=== PATIENT | male | born 1965 | race Caucasian/White ===

== ENCOUNTER 2017-01-18 13:42 | Observation (INO) | payer OTHER ==
[2017-01-18] MEDS ORDERED: ASPIRIN 81 MG TABLET, CHEWABLE PO ONE (14:13)
--- NOTE | 2017-01-18 14:17 | ER Document Report ---
ED Medical Screen (RME) - General Chief Complaint: Syncope Stated Complaint: FAINTED Time Seen by Provider: 01/18/17 14:13 Mode of Arrival: Medic Information source: Patient Notes: 51-year-old male presents to ED for passing out at work today. He states he was sick yesterday and sent home from work got up this morning and ate a good breakfast and then went to work. He is a diabetic type II so it he just finished eating peanut butter with honey sandwich and radishes when he was walking back to work he passed out a fellow worker caught him so he did not hit his head said he was out he is not sure how but he knows it was for a while and when he came to he was still a little additive according to the bystanders. His sugar was 110. He does have a pacemaker which was installed December 2013 in [place]. He said [employer] device was sent to the monitoring station to 3 weeks ago and a time he had occasional PVCs. He does get care for by the [facility]. Patient is alert and oriented speaking in full sentences at this time. I have greeted and performed a rapid initial assessment of this patient. A comprehensive ED assessment and evaluation of the patient, analysis of test results and completion of medical decision making process will be conducted by an additional ED providers. TRAVEL OUTSIDE OF THE [place] IN LAST 30 DAYS: No - Related Data Allergies/Adverse Reactions: Penicillins Allergy (Severe, Verified 01/18/17 13:46) Generalized Itching tramadol Allergy (Intermediate, Verified 01/18/17 13:46) VOMITING Physical Exam - Vital signs Vitals: Temp Pulse Resp BP Pulse Ox 98.7 F 80 16 117/68 98 01/18/17 13:59 01/18/17 13:59 01/18/17 13:59 01/18/17 13:59 01/18/17 13:59 Course - Vital Signs Vital signs: Temp Pulse Resp BP Pulse Ox 98.7 F 80 16 117/68 98 01/18/17 13:59 01/18/17 13:59 01/18/17 13:59 01/18/17 13:59 01/18/17 13:59
[2017-01-18 15:12] LABS: ABSOLUTE LYMPHOCYTES (AUTO) 1.3 10^3/uL (0.5-4.7); ABSOLUTE MONOCYTES (AUTO) 0.6 10^3/uL (0.1-1.4); ABSOLUTE NEUT (AUTO) 5.8 10^3/uL (1.7-8.2); BASOPHILS % (AUTO) 0.4 % (0-2); EOSINOPHILS % (AUTO) 0.5 % (0-6); HEMATOCRIT 39.4 % (37.9-51.0); HEMOGLOBIN 13.1 g/dL (13.5-17.0); HGB HCT DIFFERENCE -0.1; LYMPHOCYTES % (AUTO) 16.8 % (13-45); MEAN CORPUSCULAR HGB CONC 33.4 g/dL (32.0-36.0); MEAN CORPUSCULAR VOLUME 87 fl (80-97); MONOCYTES % (AUTO) 7.3 % (3-13); RED BLOOD COUNT 4.54 10^6/uL (4.35-5.55); RED CELL DISTRIBUTION WIDTH 13.9 % (11.5-14.0); WHITE BLOOD COUNT 7.7 10^3/uL (4.0-10.5)
--- NOTE | 2017-01-18 15:16 | RADIOLOGY REPORT (SQ) ---
EXAM DESCRIPTION: CHEST PA/LAT COMPLETED DATE/TIME: 01/18/2017 3:09 pm REASON FOR STUDY: syncope with pacemaker diabetes COMPARISON: None. EXAM PARAMETERS: NUMBER OF VIEWS: two views TECHNIQUE: Digital Frontal and Lateral radiographic views of the chest acquired. RADIATION DOSE: NA LIMITATIONS: none FINDINGS: LUNGS AND PLEURA: No opacities, masses or pneumothorax. No pleural effusion. MEDIASTINUM AND HILAR STRUCTURES: No masses or contour abnormalities. HEART AND VASCULAR STRUCTURES: Heart normal size. No evidence for failure. BONES: No acute findings. HARDWARE: Pacemaker OTHER: No other significant finding. IMPRESSION: NO SIGNIFICANT RADIOGRAPHIC FINDING IN THE CHEST. TECHNICAL DOCUMENTATION: JOB ID: [id number] [employer]- All Rights Reserved
[2017-01-18 15:32] LABS: ALANINE AMINOTRANSFERASE 43 U/L (21-72); ALBUMIN 4.9 g/dL (3.5-5.0); ALKALINE PHOSPHATASE 75 U/L (38-126); ANION GAP 16 (5-19); ASPARTATE AMINO TRANSFERASE 24 U/L (17-59); BILIRUBIN,DIRECT 0.4 mg/dL (0.0-0.4); BILIRUBIN,TOTAL 0.5 mg/dL (0.2-1.3); BLOOD UREA NITROGEN 17 mg/dL (7-20); CALCIUM 9.7 mg/dL (8.4-10.2); CARBON DIOXIDE 25 mmol/L (22-30); CHLORIDE 102 mmol/L (98-107); CREATINE KINASE 67 U/L (55-170); CREATININE RESULT 0.83 mg/dL (0.52-1.25); GLUCOSE 143 mg/dL (75-110); POTASSIUM 4.5 mmol/L (3.6-5.0); SODIUM 142.8 mmol/L (137-145); TOTAL PROTEIN 7.7 g/dL (6.3-8.2)
[2017-01-18 15:44] LABS: CREATINE KINASE MB 0.63 ng/mL (<4.55)
[2017-01-18 15:45] LABS: TROPONIN I < 0.012 ng/mL
--- NOTE | 2017-01-18 19:34 | ER Document Report ---
ED General - General Chief Complaint: Syncope Stated Complaint: FAINTED Time Seen by Provider: 01/18/17 14:13 Mode of Arrival: Medic TRAVEL OUTSIDE OF THE [place] IN LAST 30 DAYS: No - HPI Onset: Just prior to arrival Onset/Duration: Sudden Quality of pain: No pain Context: Patient environmental job [place] [employer]. He states today he was walking after finishing his lunch when he became hot and passed out. A coworker did catch him he did not hit his head. Associated symptoms: Other - Hot Exacerbated by: Denies Relieved by: Denies Recently seen / treated by doctor: No - Related Data Allergies/Adverse Reactions: Penicillins Allergy (Severe, Verified 01/18/17 18:06) Generalized Itching tramadol Allergy (Intermediate, Verified 01/18/17 18:06) VOMITING Home Medications: Current Home Medications Albuterol Sulfate [Proair Respiclick] 90 mcg IH DAILY 01/18/17 [History] Aspirin 81 mg PO DAILY 01/18/17 [History] Cyanocobalamin (Vitamin B-12) [Vitamin B-12] 1,000 mcg PO DAILY 01/18/17 [ History] Duloxetine HCl [Cymbalta 20 mg Capsule.dr] 20 cap PO DAILY 01/18/17 [History] Fluticasone Propionate [Flonase Nasal [place]ickman 50 Mcg/Hickman 16 gm] 2 sprays NASL Q12 01/18/17 [History] Gabapentin 300 mg PO DAILY 01/18/17 [History] Glipizide 5 mg PO DAILY 01/18/17 [History] Meloxicam [Mobic] 15 mg PO DAILY 01/18/17 [History] Metformin HCl 1,000 mg PO DAILY 01/18/17 [History] Multivitamin [Multivitamins] 1 tab PO DAILY 01/18/17 [History] Greer-3 Fatty Acids/Fish Oil [Fish Oil 1,000 mg Capsule] 1 each PO DAILY [History] Past Medical History - General Information source: Patient - Social History Smoking Status: Never Smoker Chew tobacco use (# tins/day): No Frequency of alcohol use: None Drug Abuse: None Family History: DM Patient has suicidal ideation: No Patient has homicidal ideation: No - Past Medical History Cardiac Medical History: Reports: Other - Has a history of AV lexii blockage and he had a pacemaker placed 01/01/2014 EENT Medical History: Reports: Other - Bilateral hearing aids Endocrine Medical History: Reports: Hx Diabetes Mellitus Type 2 Renal/ Medical History: Denies: Hx Peritoneal Dialysis Musculoskeltal Medical History: Reports Hx Arthritis - b/l knees and spine Psychiatric Medical History: Reports: None Traumatic Medical History: Reports: None Past Surgical History: Reports: Hx Cardiac Surgery - pacemaker, Hx Orthopedic Surgery - right knee - Immunizations History of Influenza Vaccine for 11/2016 - 04/2017 Season: Yes - a few days ago Review of Systems - Review of Systems Constitutional: No symptoms reported EENT: No symptoms reported Cardiovascular: No symptoms reported Respiratory: No symptoms reported Gastrointestinal: No symptoms reported Musculoskeletal: No symptoms reported Skin: No symptoms reported Hematologic/Lymphatic: No symptoms reported Neurological/Psychological: Confusion - His states that on Tuesday she was driving him home when he became acutely confused. It did not last long. However he did not know where they were going and they were driving her usual route back to their house. Patient's boss also sent her home yesterday from work because he did appear confused. Physical Exam - Vital signs Vitals: Temp Pulse Resp BP Pulse Ox 98.7 F 80 16 117/68 98 01/18/17 13:59 01/18/17 13:59 01/18/17 13:59 01/18/17 13:59 01/18/17 13:59 - Notes Notes: PHYSICAL EXAMINATION: GENERAL: Well-appearing, well-nourished and in no acute distress. HEAD: Atraumatic, normocephalic. EYES: Pupils equal round and reactive to light, extraocular movements intact, sclera anicteric, conjunctiva are normal. No nystagmus ENT: Nares patent, oropharynx clear without exudates. Moist mucous membranes. bi Lateral hearing aids NECK: Normal range of motion, supple without lymphadenopathy LUNGS: Breath sounds clear to auscultation bilaterally and equal. No wheezes rales or rhonchi. HEART: Regular rate and rhythm without murmurs ABDOMEN: Soft, nontender, nondistended abdomen. No guarding, no rebound. No masses appreciated. Musculoskeletal: Normal range of motion, no pitting or edema. No cyanosis. NEUROLOGICAL: Cranial nerves grossly intact. Normal speech, normal gait. Normal sensory, motor exams PSYCH: Normal mood, normal affect. SKIN: Warm, Dry, normal turgor, no rashes or lesions noted. Course - Re-evaluation Re-evalutation: 01/18/17 19:29 I did talk to [employer] Venkata. He states that he reviewed the pacemaker going back to September 2016. It is pacing 4% of the time. There is no A. fib. There is one episode of nonsustained V. tach in October it was only 4 beats. He states no other abnormalities. 01/18/17 21:32 product support technician has gone home so the patient will be placed in labs and an MRI will be done tomorrow. - Vital Signs Vital signs: Temp Pulse Resp BP Pulse Ox 98.2 F 72 18 116/73 98 01/18/17 19:25 01/18/17 19:44 01/18/17 20:34 01/18/17 20:34 01/18/17 20:34 - Laboratory Result Diagrams: 01/18/17 14:54 01/18/17 14:54 Laboratory results interpreted by me: 01/18/17 01/18/17 14:54 14:54 Hgb 13.1 L Glucose 143 H 01/18/17 21:35 trop negative x 2 - Diagnostic Test Radiology reviewed: Image reviewed, Reports reviewed Radiology results interpreted by me: 01/18/17 19:37 Chest x-ray shows no acute abnormality. CT head no acute abnormality. 01/18/17 21:34 - EKG Interpretation by [place] EKG shows normal: Sinus rhythm Rate: Normal Heart block present: 1st Degree Discharge - Discharge Clinical Impression: Syncope Condition: Stable Disposition: ADMITTED OBSERVATION Admitting Provider: Hospitalist - Dr. Fabian Unit Admitted: Telemetry Referrals: VIJAY DAVIS MD [Primary Care Provider] - Follow up as needed
--- NOTE | 2017-01-18 20:36 | RADIOLOGY REPORT (SQ) ---
EXAM DESCRIPTION: CT HEAD WITHOUT COMPLETED DATE/TIME: 01/18/2017 8:20 pm REASON FOR STUDY: Syncope COMPARISON: None. TECHNIQUE: Axial images acquired through the brain without intravenous contrast. Images reviewed wi th bone, brain and subdural windows. Images stored on PACS. All CT scanners at this facility use dose modulation, iterative reconstruction, and/or weight based d osing when appropriate to reduce radiation dose to as low as reasonably achievable (ALARA). [facility]: Dose Right [facility]: CareDose [facility]: Dose Right [facility]: Teradose 4D [facility]: [employer] RADIATION DOSE: mGy. LIMITATIONS: None. FINDINGS: VENTRICLES: Normal size and contour. CEREBRUM: No masses. No hemorrhage. No midline shift. No evidence for acute infarction. Normal gra y/white matter differentiation. No areas of low density in the white matter. CEREBELLUM: No masses. No hemorrhage. No alteration of density. No evidence for acute infarction. EXTRAAXIAL SPACES: No fluid collections. No masses. ORBITS AND GLOBE: No intra- or extraconal masses. Normal contour of globe without masses. CALVARIUM: No fracture. PARANASAL SINUSES: No fluid or mucosal thickening. SOFT TISSUES: No mass or hematoma. OTHER: No other significant finding. IMPRESSION: NORMAL BRAIN CT WITHOUT CONTRAST. EVIDENCE OF ACUTE STROKE: NO. COMMENT: Quality ID # [id number]: Final reports with documentation of one or more dose reduction techniques (e.g., Automated exposure control, adjustment of the mA and/or kV according to patient size, use of iterative reconstruction technique) TECHNICAL DOCUMENTATION: JOB ID: [id number] [employer]- All Rights Reserved
--- NOTE | 2017-01-18 21:39 | EKG REPORT ---
SEVERITY:- ABNORMAL ECG - SINUS RHYTHM FIRST DEGREE AV BLOCK : Confirmed by: Gabbie Valencia 18-Jan-2017 21:38:15
[2017-01-18] MEDS ORDERED: INSULIN LISPRO 100 UNIT/ML 3 ML VIAL SUBCUT PRN (21:54)
[2017-01-18] MEDS ORDERED: GLUCAGON,HUMAN RECOMB 1 MG INJ IM PRN (21:54)
[2017-01-18] MEDS ORDERED: DOCUSATE SODIUM 100 MG CAPSULE PO PRN (21:54)
[2017-01-18] MEDS ORDERED: ACETAMINOPHEN 325 MG TABLET PO PRN (21:54)
[2017-01-18] MEDS ORDERED: DEXTROSE 40% GEL 15 GM TUBE PO PRN ×2 (21:54)
[2017-01-18] MEDS ORDERED: DEXTROSE 50%-WATER 25 GM/50 ML DISP.SYRIN IV PRN ×2 (21:54)
[2017-01-18] MEDS ORDERED: MAGNESIUM HYDROXIDE SUSP 30 ML UDCUP PO PRN (21:54)
[2017-01-18] MEDS ORDERED: ATORVASTATIN CALCIUM 80 MG TABLET PO SCH (22:00)
[2017-01-19] MEDS: HEPARIN SOD (PORCINE) 5,000 UNIT/ML 1 ML SYRINGE SUBCUT SCH ×3 (02:21→17:53)
[2017-01-19] MEDS: FLUTICASONE NASAL SPRAY 50 MCG/SPRY 120 SPRAY/16 GM NASL SCH ×2 (02:21→10:50)
[2017-01-19 02:26] LABS: URINE BARBITURATES SCREEN NEGATIVE; URINE METHADONE SCREEN NEGATIVE; URINE OPIATES LOW NEGATIVE; URINE PHENCYCLIDINE SCREEN NEGATIVE
--- NOTE | 2017-01-19 05:17 | PDOC H&P ---
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 Symptoms started 3 days ago while driving home from latter day he was noted by his girlfriend to be quiet and confused regarding directions home on a familiar route. Symptoms lasted possibly 5 minutes resolving spontaneously without headache or incontinence. Then Tuesday while at work he was noted by staff to be "off" and sent home early. Then today while working eating lunch had a brief hot sensation associated with presyncope where he was helped to the floor by coworkers. His blood sugar was found to be 110, he denies palpitations, chest pain, dizziness, headache, trauma, limb shaking or incontinence. In the emergency room he has an unremarkable workup and is referred to the hospitalist for syncope versus TIA. Patient denies a correlation with activity and symptoms or time of day. Patient admits recent initiation of Cymbalta 6 weeks ago for peripheral neuropathy which has helped. Past Medical History Cardiac Medical History: Reports: Other - Has a history of AV lexii blockage and he had a pacemaker placed 01/01/2014 Endocrine Medical History: Reports: Diabetes Mellitus Type 2 Musculoskeltal Medical History: Reports: Arthritis - b/l knees and spine Psychiatric Medical History: Reports: None, Depression Traumatic Medical History: Reports: None Past Surgical History Past Surgical History: Reports: Orthopedic Surgery - right knee, Pacemaker Social History Information Source: Patient, Friend Lives with: Spouse/Significant other Smoking Status: Never Smoker Frequency of Alcohol Use: None Hx Recreational Drug Use: No Drugs: None - Advance Directive Resuscitation Status: Full Code Family History Family History: CAD, DM, Other - No dementia, seizure or psychiatric illness Parental Family History Reviewed: Yes Children Family History Reviewed: Yes Sibling(s) Family History Reviewed.: Yes Medication/Allergy Home Medications: Albuterol Sulfate [Proair Respiclick] 90 mcg IH DAILY 01/18/17 Aspirin 81 mg PO DAILY 01/18/17 Cyanocobalamin (Vitamin B-12) [Vitamin B-12] 1,000 mcg PO DAILY 01/18/17 Duloxetine HCl [Cymbalta 20 mg Capsule.] 20 cap PO DAILY 01/18/17 Fluticasone Propionate [Flonase Nasal [place] 50 Mcg/[place] 16 gm] 2 sprays NASL Q12 01/18/17 Gabapentin 300 mg PO DAILY 01/18/17 Glipizide 5 mg PO DAILY 01/18/17 Meloxicam [Mobic] 15 mg PO DAILY 01/18/17 Metformin HCl 1,000 mg PO DAILY 01/18/17 Multivitamin [Multivitamins] 1 tab PO DAILY 01/18/17 [place]-3 Fatty Acids/Fish Oil [Fish Oil 1,000 mg Capsule] 1 each PO DAILY Allergies/Adverse Reactions: Penicillins Allergy (Severe, Verified 01/18/17 18:06) Generalized Itching tramadol Allergy (Intermediate, Verified 01/18/17 18:06) VOMITING Review of Systems Constitutional: ABSENT: chills, fever(s), headache(s), weight gain, weight loss Eyes: ABSENT: visual disturbances Ears: ABSENT: hearing changes Cardiovascular: ABSENT: chest pain, dyspnea on exertion, edema, orthropnea, palpitations Respiratory: ABSENT: cough, hemoptysis Gastrointestinal: ABSENT: abdominal pain, constipation, diarrhea, hematemesis, hematochezia, nausea, vomiting Genitourinary: ABSENT: dysuria, hematuria Musculoskeletal: ABSENT: joint swelling Integumentary: ABSENT: rash, wounds Neurological: ABSENT: abnormal gait, abnormal speech, confusion, dizziness, focal weakness, syncope Psychiatric: ABSENT: anxiety, depression, homidical ideation, suicidal ideation Endocrine: ABSENT: cold intolerance, heat intolerance, polydipsia, polyuria Hematologic/Lymphatic: ABSENT: easy bleeding, easy bruising Physical Exam Vital Signs: Temp Pulse Resp BP Pulse Ox 98.3 F 72 12 114/77 96 01/19/17 00:46 01/18/17 19:44 01/19/17 03:00 01/19/17 03:00 01/19/17 03:00 General appearance: PRESENT: no acute distress, well-developed, well-nourished Head exam: PRESENT: atraumatic, normocephalic Eye exam: PRESENT: conjunctiva pink, EOMI, PERRLA. ABSENT: scleral icterus Ear exam: PRESENT: normal external ear exam Mouth exam: PRESENT: moist, tongue midline Neck exam: ABSENT: carotid bruit, JVD, lymphadenopathy, thyromegaly Respiratory exam: PRESENT: clear to auscultation walter. ABSENT: rales, rhonchi, wheezes Cardiovascular exam: PRESENT: RRR. ABSENT: diastolic murmur, rubs, systolic murmur Pulses: PRESENT: normal dorsalis pedis pul Vascular exam: PRESENT: normal capillary refill GI/Abdominal exam: PRESENT: normal bowel sounds, soft. ABSENT: distended, guarding, mass, organolmegaly, rebound, tenderness Rectal exam: PRESENT: deferred Extremities exam: PRESENT: full ROM. ABSENT: calf tenderness, clubbing, pedal edema Neurological exam: PRESENT: alert, awake, oriented to person, oriented to place , oriented to time, oriented to situation, CN II-XII grossly intact. ABSENT: motor sensory deficit Psychiatric exam: PRESENT: appropriate affect, normal mood. ABSENT: homicidal ideation, suicidal ideation Skin exam: PRESENT: dry, intact, warm. ABSENT: cyanosis, rash Results Laboratory Results: 01/18/17 22:38 TSH 3.05 Impressions: Chest X-Ray 01/18/17 14:14 IMPRESSION: NO SIGNIFICANT RADIOGRAPHIC FINDING IN THE CHEST. Head CT 01/18/17 19:24 IMPRESSION: NORMAL BRAIN CT WITHOUT CONTRAST. EVIDENCE OF ACUTE STROKE: NO. Assessment & Plan - Diagnosis (1) TIA (transient ischemic attack) Is this a current diagnosis for this admission?: Yes Plan: Observation on a monitored bed with CVA care set, follow-up carotid Doppler and MRI (2) Partial seizure Is this a current diagnosis for this admission?: Yes Plan: Symptoms with recent onset, evaluate MRI and thyroid function. On Neurontin consider Lamictal trial versus outpatient neurology consult (3) Syncope Is this a current diagnosis for this admission?: Yes Plan: Pacemaker interrogation, orthostatic blood pressures, most likely partial seizure (4) Diabetes 1.5, managed as type 2 Is this a current diagnosis for this admission?: Yes Plan: No evidence for hypoglycemia obtain A1c consider reduction of hypoglycemics. - Time Time Spent: 30 to 50 Minutes - Inpatient Certification Medical Necessity: Need Close Monitoring Due to Risk of Patient Decompensation
[2017-01-19 07:09] LABS: CHOLESTEROL 100.63 mg/dL (0-200); Direct HDL 34 mg/dL (>40); TRIGLYCERIDES 69 mg/dL (<150)
[2017-01-19 07:20] LABS: DIRECT LDL 47 mg/dL (<100)
[2017-01-19] MEDS ORDERED: GLIPIZIDE 5 MG TABLET PO SCH (10:00)
[2017-01-19] MEDS ORDERED: ASPIRIN 81 MG TABLET, CHEWABLE PO SCH (10:00)
--- NOTE | 2017-01-19 13:41 | RADIOLOGY REPORT (SQ) ---
EXAM DESCRIPTION: CAROTID DOPPLER COMPLETED DATE/TIME: 01/19/2017 12:50 pm REASON FOR STUDY: ti COMPARISON: None. TECHNIQUE: Grayscale ultrasound, Doppler velocity and spectra, and color Doppler images acquired of the extra-cranial carotid and vertebral arteries. Images stored on PACS. LIMITATIONS: None. FINDINGS: RIGHT CAROTID CCA Velocities: Within normal limits. ICA Velocities Peak systolic 1.05 m/s. End diastolic 0.24 m/s. Proximal ICA/CCA peak systolic ratio 1.1. Spectra normal. No significant plaque. LEFT CAROTID CCA Velocities: Within normal limits. ICA Velocities Peak systolic 1.22 m/s. End diastolic 0.31 m/s. Proximal ICA/CCA peak systolic ratio 1.2. Spectra normal. No significant plaque. VERTEBRAL ARTERIES: Antegrade flow. Normal waveforms. SUBCLAVIAN ARTERIES: No finding. OTHER: No other significant finding. IMPRESSION: NO HEMODYNAMICALLY SIGNIFICANT STENOSIS. COMMENT: Quality ID #[id number]: Velocity criteria are extrapolated from the diameter data as defined by t he Society of Radiologists in Ultrasound Consensus Conference. Radiology 2003: 229; [id number]. TECHNICAL DOCUMENTATION: JOB ID: [id number] [employer]- All Rights Reserved
[2017-01-19 14:43] VITALS: BP 106/66
--- NOTE | 2017-01-19 18:16 | PDOC DISCHARGE SUMMARY ---
General - Admit/Disc Date/PCP Admission Date/Primary Care Provider: 01/18/17 21:44 VIJAY DAVIS MD Discharge Date: 01/19/17 - Discharge Diagnosis (1) Syncope Is this a current diagnosis for this admission?: Yes Summary: The patient was admitted for observation after a syncopal episode at his workplace lasting 3-5 minutes. He was also noted to have had a brief episode of confusion occurring earlier in the week. He did not have presyncopal/ syncopal symptoms at that time. He was not noted to have facial droop, extremity weakness, aphasia at either occurrence. He was evaluated for TIA/CVA with head CT that did not show any acute findings and carotid Doppler which did not demonstrate hemodynamically significant stenosis. Unfortunately, he was unable to have an MRI secondary to his pacemaker. His pacemaker was interrogated; no dysrhythmias were noted at the time of these incidences. He was found to have had a 4-5 second run of V. tach last month. Laboratory evaluation revealed acceptable lipid panel, TSH level, and negative troponins. His A1c was found to be 6.3%. The patient states that he has been very strict with his dietary intake recently and has lost nearly 25 pounds. He states that he has been taking 5 mg glipizide approximately 1 hour prior to breakfast and 15 mg of glipizide 1 hour prior to dinner. This does raise the concern of hypoglycemia being the precipitating factor. He is advised to hold his glipizide until follow-up with his primary care provider and discuss whether or not this medication continues to be appropriate for management of his diabetes. He may also benefit from a neurological referral if he continues to have episodes of confusion, however, he is reassured that he is appropriately covered for TIA given that he is currently on a statin and aspirin therapy. He is discharged home in stable condition with recommendations to follow up with his primary care provider within 1 week and title inspector within 1 month. Signs and symptoms of a stroke were discussed; to return to the emergency department for stroke-like symptoms. (2) Diabetes 1.5, managed as type 2 Is this a current diagnosis for this admission?: Yes Summary: The patient's metformin was continued. He was provided Humalog for sliding scale coverage. He has been instructed to hold his glipizide until he receives further follow-up instructions from his primary care provider. - Additional Information Resuscitation Status: Full Code Discharge Diet: Diabetic Discharge Activity: Activity As Tolerated Home Medications: Albuterol Sulfate [Proair Respiclick] 90 mcg IH DAILYP PRN 01/18/17 Aspirin 81 mg PO QPM 01/18/17 Cyanocobalamin (Vitamin B-12) [Vitamin B-12] 1,000 mcg PO DAILY 01/18/17 Duloxetine HCl [Cymbalta 20 mg Capsule.] 20 cap PO QPM 01/18/17 Fluticasone Propionate [Flonase Nasal Moyers 50 Mcg/Moyers 16 gm] 2 sprays NASL Q12HP PRN 01/18/17 Gabapentin 300 mg PO QPM 01/18/17 Meloxicam [Mobic] 15 mg PO DAILY 01/18/17 Metformin HCl 1,000 mg PO DAILY 01/18/17 Multivitamin [Multivitamins] 1 tab PO DAILY 01/18/17 Paradise-3 Fatty Acids/Fish Oil [Fish Oil 1,000 mg Capsule] 1 each PO BID 01/18/17 Atorvastatin Calcium [Lipitor 20 mg Tablet] 20 mg PO QHS 01/19/17 Metformin HCl [Glucophage] 1,500 mg PO QPM 01/19/17 History of Present Illness History of Present Illness: Per H&P by Dr. Fabian: NEYMAR MORA is a 51 year old male with a past medical history of third-degree AV block with permanent pacemaker placement 2 years ago and diabetes with peripheral neuropathy who presents after 3 days of neurological complaint. Symptoms started 3 days ago while driving home from synagogue he was noted by his girlfriend to be quite confused regarding directions home on a familiar route. Symptoms lasted possibly 5 minutes resolving spontaneously without headache or incontinence. Then Tuesday while at work he was noted by staff to be "off "and sent home early. Then today while working eating lunch had a brief hot sensation associated with presyncope where he was helped to the floor by coworkers. His blood sugar was found to be 110, he denies palpitations, chest pain, dizziness, headaches, trauma, life shaking or incontinence. In the emergency room he has an unremarkable workup and is referred to the hospitalist for syncope versus TIA. Patient denies a correlation with activity in symptoms or time of day. Patient admits recent initiation of Cymbalta 6 weeks ago for peripheral neuropathy which has helped. Physical Exam Vital Signs: Temp Pulse Resp BP Pulse Ox 97.7 F 84 15 106/66 98 01/19/17 17:25 01/19/17 17:25 01/19/17 17:25 01/19/17 17:25 01/19/17 17:25 General appearance: PRESENT: no acute distress, well-developed, well-nourished Head exam: PRESENT: atraumatic, normocephalic Eye exam: PRESENT: conjunctiva pink, EOMI, PERRLA. ABSENT: scleral icterus Ear exam: PRESENT: normal external ear exam Mouth exam: PRESENT: moist, tongue midline Neck exam: ABSENT: carotid bruit, JVD, lymphadenopathy, thyromegaly Respiratory exam: PRESENT: clear to auscultation walter. ABSENT: rales, rhonchi, wheezes Cardiovascular exam: PRESENT: RRR. ABSENT: diastolic murmur, rubs, systolic murmur Pulses: PRESENT: normal dorsalis pedis pul Vascular exam: PRESENT: normal capillary refill GI/Abdominal exam: PRESENT: normal bowel sounds, soft. ABSENT: distended, guarding, mass, organolmegaly, rebound, tenderness Rectal exam: PRESENT: deferred Extremities exam: PRESENT: full ROM. ABSENT: calf tenderness, clubbing, pedal edema Neurological exam: PRESENT: alert, awake, oriented to person, oriented to place , oriented to time, oriented to situation, CN II-XII grossly intact. ABSENT: motor sensory deficit Psychiatric exam: PRESENT: appropriate affect, normal mood. ABSENT: homicidal ideation, suicidal ideation Skin exam: PRESENT: dry, intact, warm. ABSENT: cyanosis, rash Results Laboratory Results: 01/18/17 01/19/17 22:38 06:48 Triglycerides 69 Cholesterol 100.63 LDL Cholesterol Direct 47 VLDL Cholesterol 14.0 HDL Cholesterol 34 L TSH 3.05 Impressions: Chest X-Ray 01/18/17 14:14 IMPRESSION: NO SIGNIFICANT RADIOGRAPHIC FINDING IN THE CHEST. Head CT 01/18/17 19:24 IMPRESSION: NORMAL BRAIN CT WITHOUT CONTRAST. EVIDENCE OF ACUTE STROKE: NO. Carotid Doppler Study 01/19/17 00:00 IMPRESSION: NO HEMODYNAMICALLY SIGNIFICANT STENOSIS. Qualifiers PATEINT BEING DISCHARGED WITH ANY OF THE FOLLOWING DIAGNOSIS?: No Plan Discharge Plan: Discharge to home with self-care. Patient to follow-up with primary care provider within 1-2 weeks and with title inspector within 1 month. Time Spent: Less than 30 Minutes
== END 2017-01-19 18:11 | disposition home or self-care (01) ==
LOC: ER 13:42 → EH 21:44
PROVIDERS: ADMIT Internal Medicine; ATTEND Internal Medicine
PROC: 4B02XSZ Measurement of Cardiac Pacemaker, External Approach (ICD-10-PCS; principal; 2017-01-18)
DX: R55 Syncope and collapse (principal); R41.0 Disorientation, unspecified; Z45.018 Encounter for adjustment and management of other part of cardiac pacemaker; E11.42 Type 2 diabetes mellitus with diabetic polyneuropathy; I44.0 Atrioventricular block, first degree; Z79.84 Long term (current) use of oral hypoglycemic drugs; Z79.82 Long term (current) use of aspirin; Z79.899 Other long term (current) drug therapy; Z82.49 Family history of ischemic heart disease and other diseases of the circulatory system; Z83.3 Family history of diabetes mellitus
CPT/HCPCS: 93005; 99285; 36415 ×2; 82553; 82962; 82550; 84443; 85025; 80053; 84484; 80307; 83036; 80061; 93880; 71020; 70450; 93010; 93296; J3490